=== PATIENT | male | born 1990 | race Caucasian/White ===

== ENCOUNTER 2019-01-15 12:14 | Emergency (ER) | payer OTHER ==
[~2019-01-15] VITALS: Ht 170.2 cm; Wt 68.0 kg
[2019-01-15 12:14] VITALS: BP 105/62
[~2019-01-15 12:14] MED LIST: ALBUTEROL2.5 MG/0.1 INH; LEVAQUIN 500 M50012 PO; NAPROSYN500 MG PO; NOHOMEMEDICATIONS; NORCO 5-325 TA1 EACH PO; PENICILLIN VK500 MG PO; PREDNISONE 20 M20 M1 PO; TESSALON PERLE100 MG PO; TRAMADOL 50 MG50 MG PO
[2019-01-15] MEDS ORDERED: AMOXICILLIN 50500 MG PO (12:54)
[2019-01-15] MEDS ORDERED: SUDOGEST30 MG PO (12:54)
== END 2019-01-15 13:19 | disposition home or self-care (01) ==
LOC: ER 12:14
DX: H66.92 Otitis media, unspecified, left ear (principal); J45.909 Unspecified asthma, uncomplicated; G89.29 Other chronic pain

== ENCOUNTER 2021-06-01 01:13 | Emergency (ER) | payer OTHER ==
[~2021-06-01] VITALS: Ht 170.2 cm; Wt 63.5 kg
[~2021-06-01 01:13] MED LIST changes: +AMOXICILLIN 50500 MG PO; +SUDOGEST30 MG PO
[2021-06-01] MEDS ORDERED: MOBIC15 MG PO (02:13)
[2021-06-01 02:30] VITALS: BP 125/57
== END 2021-06-01 02:32 | disposition home or self-care (01) ==
LOC: ER 01:13
DX: S20.212A Contusion of left front wall of thorax, initial encounter (principal); J45.909 Unspecified asthma, uncomplicated; W11.XXXA Fall on and from ladder, initial encounter; Y93.89 Activity, other specified; Y92.89 Other specified places as the place of occurrence of the external cause; Y99.8 Other external cause status

== ENCOUNTER 2021-12-27 14:51 | Emergency (ER) | payer OTHER ==
[~2021-12-27] VITALS: Ht 170.2 cm; Wt 68.0 kg
[~2021-12-27 14:51] MED LIST changes: +MOBIC15 MG PO
[2021-12-27 15:18] LABS: ABSOLUTE NEUTROPHILS 4.5 thou/uL (1.4-8.2); BASOPHILS 1.4 % (0.0-2.0); EOSINOPHILS 3.6 % (0.0-3.0); HEMATOCRIT 46.5 % (42.0-52.0); LYMPHOCYTES 33.1 % (24.0-44.0); MCH 31.6 pg (26.0-34.0); MCHC 34.3 g/dL (28.0-37.0); MCV 92.2 fL (80.0-100.0); PLATELET COUNT 288 thou/uL (150-400); POLYS 54.9 % (36.0-66.0); RBC 5.05 mil/uL (4.50-6.00); RDW 13.2 % (10.5-14.5); WBC 8.3 thou/uL (4.0-11.0)
[2021-12-27 15:26] LABS: URINE BILIRUBIN NEGATIVE (Negative); URINE BLOOD 3+ (Negative); URINE CLARITY CLEAR; URINE COLOR YELLOW; URINE GLUCOSE-RANDOM* NEGATIVE (Negative); URINE KETONES TRACE (Negative); URINE LEUKOCYTES-REFLEX NEGATIVE (Negative); URINE NITRITE-REFLEX NEGATIVE (Negative); URINE PROTEIN (DIPSTICK) 2+ (Negative); URINE SPECIFIC GRAVITY 1.025 (1.005-1.035); URINE UROBILINOGEN 0.2 E.U./dl (0.2-1.0)
[2021-12-27 15:33] LABS: CALCIUM 9.5 mg/dL (8.5-10.1); CREATININE 1.1 mg/dL (0.7-1.3); POTASSIUM 4.2 mmol/L (3.5-5.1)
[2021-12-27 15:37] LABS: ALBUMIN 4.5 g/dL (3.4-5.0); TOTAL BILIRUBIN 0.5 mg/dL (0.2-1.0); TOTAL PROTEIN 7.6 g/dL (6.4-8.2)
[2021-12-27 15:39] LABS: SQUAMOUS 0-3 Few /LPF (0-3)
[2021-12-27 15:40] LABS: BACTERIA-REFLEX 1-9 Few /HPF (None Seen); CASTS None Seen /LPF (None Seen); CRYSTALS None Seen /LPF (None Seen); URINE WBC-REFLEX 0-5 Rare /HPF (0-5)
[2021-12-27] MEDS ORDERED: NAPROSYN500 MG PO (17:19)
[2021-12-27 17:20] VITALS: BP 106/59
== END 2021-12-27 17:38 | disposition home or self-care (01) ==
LOC: ER 14:51
PROVIDERS: Emergency Medicine
DX: R10.31 Right lower quadrant pain (principal); J45.909 Unspecified asthma, uncomplicated; F17.210 Nicotine dependence, cigarettes, uncomplicated